=== PATIENT | female | born 1960 | race Caucasian/White ===

== ENCOUNTER 2017-05-01 11:10 | Emergency (ER) | payer BC ==
[~2017-05-01] VITALS: Ht 149.9 cm; Wt 63.5 kg
[~2017-05-01 11:10] MED LIST: BENA5TAB2 PO; CEPH-569; DULO20CA PO; GABA600T2 PO; GLIP10TA11 PO; HYDR-3326; HYDR-3652 PO; METF500T4 PO; SULF1TAB47; TRAM-351 PO; ZOLP10TA6 PO
--- NOTE | 2017-05-01 11:20 | NUR ---
PT TO ER BED 09. C/O LLE PAIN X 4 DAYS. WOUND NOTED, APPROX 3CM DIAMETER. HX OF DIABETES AND NEUROPHATY. PT STATES SHE IS TREATING IT W/ A PRESCRIBE CREAM. VSS. AWAITING MD VILLEDA.
--- NOTE | 2017-05-01 11:39 | NUR ---
DR MOROCHO AT BEDSIDE FOR EVAL.
--- NOTE | 2017-05-01 12:04 | NUR ---
FELT HOOKER AT BEDSIDE FOR BLOOD DRAW.
--- NOTE | 2017-05-01 12:10 | NUR ---
RADIOLOGY AT BEDSIDE FOR L TIB/FIB AND L FOOT XRAY.
[2017-05-01 12:35] LABS: BASOPHILS # (AUTO) 0.1 /CMM (0.0-0.2); BASOPHILS % (AUTO) 0.7 % (0.0-2.0); EOSINOPHILS # (AUTO) 0.5 /CMM (0.0-0.7); EOSINOPHILS % (AUTO) 4.1 % (0.0-6.0); HEMATOCRIT 34 % (33-45); HEMOGLOBIN 11.1 g/dL (11.5-14.8); LYMPHOCYTES # (AUTO) 2.7 /CMM (0.8-4.8); LYMPHOCYTES % (AUTO) 23.9 % (20.0-44.0); MEAN CORPUSCULAR HEMOGLOBIN 31 PG (26.0-33.0); MEAN CORPUSCULAR HGB CONC 32 g/dl (31.0-36.0); MEAN CORPUSCULAR VOLUME 94 fL (82-100); MONOCYTES # (AUTO) 0.6 /CMM (0.1-1.30); MONOCYTES % (AUTO) 5.2 % (2.0-12.0); NEUTROPHILS # (AUTO) 7.4 /CMM (1.8-8.9); NEUTROPHILS % (AUTO) 66.1 % (43.0-81.0); PLATELET COUNT (AUTO) 372 /CMM (150-450); RDW COEFFICIENT OF VARIATION 14.5 (11.5-15.0); RED BLOOD CELL COUNT(AUTO) 3.63 MIL/uL (4.0-5.2); WHITE BLOOD COUNT (AUTO) 11.2 K/uL (4.3-11.0)
[2017-05-01 12:37] LABS: POTASSIUM 5.5 mmol/L (3.5-5.1)
--- NOTE | 2017-05-01 13:29 | NUR ---
Patient discharged to home in stable condition. Written and verbal after care instructions given. Patient verbalizes understanding of instruction.
[2017-05-01 13:30] VITALS: BP 115/60
== END 2017-05-01 13:31 | disposition home or self-care (01) ==
LOC: ER 11:13
DX: L03.116 Cellulitis of left lower limb (principal); E87.5 Hyperkalemia; F17.200 Nicotine dependence, unspecified, uncomplicated; E11.40 Type 2 diabetes mellitus with diabetic neuropathy, unspecified; E78.5 Hyperlipidemia, unspecified; I10 Essential (primary) hypertension
CPT/HCPCS: 36415; 73590-TC; 73630-TC; 80048-TC; 84132-TC; 85025-TC; 85652-TC; 86140-TC; 87040-TC; A4606; Z7610

== ENCOUNTER 2017-07-22 12:54 | Inpatient (IN) | payer BC, MEDICAID ==
[~2017-07-22] VITALS: Ht 149.9 cm; Wt 59.0 kg
--- NOTE | 2017-07-22 13:00 | NUR ---
PT TO ED DT LEFT FELTON AND LFT HEEL PRESSURE ULCER. PER PT SHE WAS ON PO ATB. LEFT FELTON WOUND HAS BEEN THERE FOR 5 MOS. NO REDNESS NOTED. VSS
[2017-07-22] MEDS ORDERED: IV NS 0.9% 1,000 ML BAG IV ONE (14:00)
[2017-07-22] MEDS ORDERED: PIPERACILLIN /TAZOBACTAM 3.375 G in IV D5W 50 ML IV ONE (14:00)
[2017-07-22] MEDS ORDERED: VANCOMYCIN 1 GM in IV D5W 250 ML IV ONE (14:00)
[2017-07-22 14:11] LABS: BASOPHILS # (AUTO) 0.1 /CMM (0.0-0.2); BASOPHILS % (AUTO) 0.7 % (0.0-2.0); EOSINOPHILS # (AUTO) 0.8 /CMM (0.0-0.7); EOSINOPHILS % (AUTO) 7.1 % (0.0-6.0); HEMATOCRIT 36 % (33-45); HEMOGLOBIN 11.8 g/dL (11.5-14.8); LYMPHOCYTES # (AUTO) 3.3 /CMM (0.8-4.8); LYMPHOCYTES % (AUTO) 29.2 % (20.0-44.0); MEAN CORPUSCULAR HEMOGLOBIN 30 PG (26.0-33.0); MEAN CORPUSCULAR HGB CONC 33 g/dl (31.0-36.0); MEAN CORPUSCULAR VOLUME 90 fL (82-100); MONOCYTES # (AUTO) 0.5 /CMM (0.1-1.30); MONOCYTES % (AUTO) 4.3 % (2.0-12.0); NEUTROPHILS # (AUTO) 6.7 /CMM (1.8-8.9); NEUTROPHILS % (AUTO) 58.7 % (43.0-81.0); PLATELET COUNT (AUTO) 388 /CMM (150-450); RDW COEFFICIENT OF VARIATION 12.9 (11.5-15.0); RED BLOOD CELL COUNT(AUTO) 3.96 MIL/uL (4.0-5.2); WHITE BLOOD COUNT (AUTO) 11.4 K/uL (4.3-11.0)
--- NOTE | 2017-07-22 14:15 | NUR ---
CALLED NURSING SUP. FOR MS BED
--- NOTE | 2017-07-22 14:21 | NUR ---
EMS HELICOPTER PILOT AT BEDSIDE
--- NOTE | 2017-07-22 14:29 | NUR ---
MS 120-2
[2017-07-22 14:41] LABS: CREATININE 1.1 mg/dL (0.6-1.3); POTASSIUM 5.3 mmol/L (3.5-5.1)
[2017-07-22 14:49] LABS: ALBUMIN 3.3 g/dL (3.4-5.0); BILIRUBIN,TOTAL 0.1 mg/dL (0.2-1.0); TOTAL PROTEIN, SERUM 7.5 g/dL (6.4-8.2)
[2017-07-22] MEDS ORDERED: HYDR-548 PO (14:49)
[2017-07-22] MEDS ORDERED: HYDROCODONE/APAP 5/325MG 1 EACH TABLET ONE (14:49)
[2017-07-22] MEDS ORDERED: GEMF600T3 PO (14:49)
[2017-07-22] MEDS ORDERED: DULO30CA51 PO (14:49)
[2017-07-22] MEDS ORDERED: LISI-603 PO (14:49)
[2017-07-22] MEDS ORDERED: FERR-58 PO (14:49)
[2017-07-22] MEDS ORDERED: GABA-534 PO (14:49)
[2017-07-22] MEDS ORDERED: GLIM4TAB2 PO (14:49)
[2017-07-22] MEDS ORDERED: HYDROCODONE/APAP 5/325MG 1 EACH TABLET PO ONE (15:00)
--- NOTE | 2017-07-22 15:02 | NUR ---
DR.RUTHERFORD MEHDI WHEELABRATOR OPERATOR
--- NOTE | 2017-07-22 15:12 | NUR ---
REPORT GIVEN TO PERRY ARCHER
--- NOTE | 2017-07-22 15:12 | NUR ---
MD HIRSCHFIRNael AWARE OF ADMISSION
[2017-07-22] MEDS ORDERED: IV 1/2NS 1000 ML 1,000 ML IV PRN (15:31)
[2017-07-22] MEDS ORDERED: HYDROCODONE/APAP 10/325MG 1 EA TABLET PO PRN (16:00)
[2017-07-22] MEDS ORDERED: MAGNESIUM HYDROXIDE 30 ML UDC PO PRN (16:00)
[2017-07-22] MEDS ORDERED: ZOLPIDEM TARTRATE 5 MG TABLET PO PRN (16:00)
[2017-07-22] MEDS ORDERED: HYDROCODONE/APAP 5/325MG 1 EACH TABLET PO PRN (16:00)
[2017-07-22] MEDS ORDERED: *INSULIN REGULAR(HUMULIN R)HUM 100 UNIT/ML VIAL SQ PRN (16:00)
[2017-07-22] MEDS ORDERED: Z GUARD REMEDY 2 OZ OINT TP PRN (16:00)
[2017-07-22] MEDS ORDERED: ONDANSETRON HCL/PF 4 MG/2 ML VIAL IVP PRN (16:00)
[2017-07-22] MEDS ORDERED: MAG HYDROX/AL HYDROX/SIMETH 30 ML UDC PO PRN (16:00)
[2017-07-22] MEDS ORDERED: DEXTROSE 50%-WATER 50 ML DISP.SYRIN IV PRN (16:00)
[2017-07-22] MEDS ORDERED: ACETAMINOPHEN 325 MG TABLET PO PRN (16:00)
[2017-07-22 16:15] VITALS: BP 143/66
--- NOTE | 2017-07-22 16:15 | NUR ---
RN NOTES 57 YEARS OLD FEMALE RECEIVED FROM ER IN ROOM 120-2, A/Ox4, RESPIRATION EVEN AND UNLABORED, ON RA NO SOB NOTED, PT REFUSED TO TAKE HER CLOTHES OFF FOR HEAD TO TOE ASSESSMENT. PT STATED THAT HER PROBLEMS IS ONLY ON L LEG . L FELTON AND L HEEL WOUND NOTED, PHOTOS TAKEN AND PLACED IN THE CHART . R WRIST IV SITE G 20 CDI, SR UP x3, CALL LIGHT WITHIN EASY REACH, BED LOCKED AND IN LOWEST POSITION . CONTINUE TO MONITOR
[2017-07-22] MEDS ORDERED: FEE PK DOSING 1 MIN EA MC ONE (16:50)
[2017-07-22] MEDS: IV NS 0.9% 1,000 ML IV PRN (17:41)
[2017-07-22] MEDS: GEMFIBROZIL 600 MG TABLET PO SCH (17:42)
[2017-07-22] MEDS: GABAPENTIN 300 MG CAPSULE PO SCH ×2 (17:42→21:29)
[2017-07-22] MEDS: INSULIN REGULAR, HUMAN 100 UNIT/ML 3 ML VIAL SQ PRN (17:46)
[2017-07-22] MEDS: BLOOD SUGAR DIAGNOSTIC 1 EACH STRIP VI SCH ×2 (17:46→21:34)
--- NOTE | 2017-07-22 18:00 | NUR ---
RN NOTES PT STILL REFUSING TO TAKE HER CLOTHES OFF FOR SKIN ASSESSMENT, STATED THERE IS NOTHING WRONG ON HER SKIN EXCEPT THE LEFT LEG AND HEEL WOUNDS .
--- NOTE | 2017-07-22 19:30 | NUR ---
MS RN INITIAL NOTES RECEIVED PATIENT AWAKE A/OX4, ABLE TO MAKE NEEDS KNOWN. C/O 6/10 LEFT LOWER LEG PAIN. NO RESPIRATORY DISTRESS NOTED. SEEN AND EXAMINED BY TRACK REPAIR PERSON DR. GAITAN WITH ORDERS FOR LLE DEBRIDEMENT. SKIN WARM AND DRY TO TOUCH. IVF RUNNING. SIDE RAILS UP AND LOCKED. BED KEPT AT LOWEST POSITION. CALL LIGHT KEPT WITHIN EASY REACH. WILL CONTINUE TO MONITOR.
[2017-07-22 20:00] VITALS: BP 140/62
[2017-07-22] MEDS ORDERED: LIDOCAINE 2%-EPI 1:100,000 30 ML VIAL TP ONE (20:00)
--- NOTE | 2017-07-22 20:30 | NUR ---
S/P LLE DEBRIDEMENT, DRY DRESSING PLACED BY . NO COMPLICATIONS NOTED. MINIMAL BLEEDING. WILL CONTINUE TO MONITOR.
[2017-07-23] MEDS: MORPHINE SULFATE INJ 2 MG/ML DISP.SYRIN IV PRN ×2 (02:33→06:45)
[2017-07-23 04:00] VITALS: BP 138/62
[2017-07-23] MEDS: IV NS 0.9% 1,000 ML IV PRN (05:55)
--- NOTE | 2017-07-23 07:10 | NUR ---
RN NOTES RECEIVED PATIENT ON BED , AWAKE A/OX4, ABLE TO MAKE NEEDS KNOWN.RESPIRATION EVEN AND UNLABORED, NO SOB NOTED, SKIN WARM AND DRY TO TOUCH. DRESSING TO L FELTON CDI, IVF NS AT 75CC/HR RUNNING VIA R WRIST IV SITE G 20 , SIDE RAILS UP x3, BED LOCKED AND IN LOWEST POSITION, CALL LIGHT WITHIN EASY REACH. WILL CONTINUE TO MONITOR
--- NOTE | 2017-07-23 07:24 | NUR ---
MS RN CLOSING NOTES NO SIGNIFICANT CHANGES OVERNIGHT. WOUND TX PROVIDED ORDERED. PAIN MONITORED AND MANAGED NEEDED. NO RESPIRATORY DISTRESS NOTED. ALL NEEDS ANTICIPATED AND MET. SIDE RAILS UP AND LOCKED. BED KEPT AT LOWEST POSITION. CALL LIGHT KEPT WITHIN EASY REACH. CONTINUITY OF CARE ENDORSED TO AM NURSE.
[2017-07-23 07:59] LABS: BASOPHILS # (AUTO) 0.1 /CMM (0.0-0.2); BASOPHILS % (AUTO) 0.7 % (0.0-2.0); EOSINOPHILS # (AUTO) 0.6 /CMM (0.0-0.7); EOSINOPHILS % (AUTO) 6.3 % (0.0-6.0); HEMATOCRIT 31 % (33-45); LYMPHOCYTES # (AUTO) 3.4 /CMM (0.8-4.8); LYMPHOCYTES % (AUTO) 34.6 % (20.0-44.0); MEAN CORPUSCULAR HEMOGLOBIN 30 PG (26.0-33.0); MEAN CORPUSCULAR HGB CONC 33 g/dl (31.0-36.0); MEAN CORPUSCULAR VOLUME 91 fL (82-100); MONOCYTES # (AUTO) 0.5 /CMM (0.1-1.30); NEUTROPHILS # (AUTO) 5.3 /CMM (1.8-8.9); NEUTROPHILS % (AUTO) 53.4 % (43.0-81.0); PLATELET COUNT (AUTO) 287 /CMM (150-450); RDW COEFFICIENT OF VARIATION 13.9 (11.5-15.0); RED BLOOD CELL COUNT(AUTO) 3.34 MIL/uL (4.0-5.2); WHITE BLOOD COUNT (AUTO) 9.9 K/uL (4.3-11.0)
[2017-07-23 08:00] VITALS: BP 148/63
[2017-07-23] MEDS ORDERED: VANCOMYCIN 0.75 GM in IV D5W 250 ML IV SCH (08:00)
[2017-07-23] MEDS: GABAPENTIN 300 MG CAPSULE PO SCH ×2 (08:18→13:45)
[2017-07-23] MEDS: GEMFIBROZIL 600 MG TABLET PO SCH (08:18)
[2017-07-23 08:19] VITALS: BP 148/63
[2017-07-23] MEDS: INSULIN REGULAR, HUMAN 100 UNIT/ML 3 ML VIAL SQ PRN ×2 (08:20→11:46)
[2017-07-23] MEDS: BLOOD SUGAR DIAGNOSTIC 1 EACH STRIP VI SCH ×2 (08:28→11:46)
[2017-07-23 08:33] LABS: CALCIUM, SERUM 8.5 mg/dL (8.5-10.1); CREATININE 0.8 mg/dL (0.6-1.3); MAGNESIUM 2.1 mg/dL (1.8-2.4); PHOSPHORUS 3.5 mg/dL (2.5-4.9)
[2017-07-23 08:49] LABS: POTASSIUM 5.3 mmol/L (3.5-5.1)
[2017-07-23] MEDS ORDERED: FERROUS SULFATE (325 MG) 325 MG/TAB TABLET PO SCH (09:00)
[2017-07-23] MEDS ORDERED: LISINOPRIL (20MG) 20 MG TABLET PO SCH (09:00)
[2017-07-23] MEDS ORDERED: DULOXETINE HCL 30 MG CAPSULE.DR PO SCH (09:00)
[2017-07-23] MEDS ORDERED: SULF1TAB48 PO (11:19)
--- NOTE | 2017-07-23 12:00 | NUR ---
RN NOTES DISCHARGE INSTRUCTION GIVE TO PT ,VERBALIZES UNDERSTANDING , H/L ON R WRIST DISCOUNTED.
--- NOTE | 2017-07-23 14:07 | NUR ---
RN NOTES PT LEFT THE FLOOR VIA W/C ACCOMPANIED BY STAFF MEMBERS AND FAMILY TO MAIN ENTRANCE IN STABLE CONDITION .
== END 2017-07-23 14:25 | disposition home or self-care (01) | DRG 383 ==
LOC: ER 12:57 → MEDSG1 15:01
PROVIDERS: ADMIT Internal Medicine; ATTEND Internal Medicine
PROC: 0JBP0ZZ Excision of Left Lower Leg Subcutaneous Tissue and Fascia, Open Approach (ICD-10-PCS; principal; 2017-07-22)
DX: L03.116 Cellulitis of left lower limb (principal); E43 Unspecified severe protein-calorie malnutrition; E11.42 Type 2 diabetes mellitus with diabetic polyneuropathy; E11.65 Type 2 diabetes mellitus with hyperglycemia; E87.5 Hyperkalemia; Z87.891 Personal history of nicotine dependence; E78.5 Hyperlipidemia, unspecified; E87.1 Hypo-osmolality and hyponatremia; I10 Essential (primary) hypertension; Z79.84 Long term (current) use of oral hypoglycemic drugs; Z83.3 Family history of diabetes mellitus; R79.89 Other specified abnormal findings of blood chemistry; R53.1 Weakness; Z68.26 Body mass index [BMI] 26.0-26.9, adult; E88.09 Other disorders of plasma-protein metabolism, not elsewhere classified; E11.622 Type 2 diabetes mellitus with other skin ulcer; L97.929 Non-pressure chronic ulcer of unspecified part of left lower leg with unspecified severity; L89.620 Pressure ulcer of left heel, unstageable
CPT/HCPCS: 36415; 73650-TC; 80048-TC; 80076-TC; 82962-TC; 83605-TC; 83735-TC; 84100-TC; 85025-TC; 87040-TC; 87081-TC; A4606; A6402; J1815; J2270; J2543; J3370; J3490; J7030; J7060; Z7610

== ENCOUNTER 2019-09-25 10:56 | Inpatient (IN) | payer BC, MEDICAID ==
[2019-09-25] VITALS (15 sets, daily range): BP systolic 87–145; BP diastolic 27–97
[~2019-09-25] VITALS: Ht 149.9 cm; Wt 82.8 kg
[~2019-09-25 10:56] MED LIST changes: -BENA5TAB2 PO; -CEPH-569; -DULO20CA PO; +DULO30CA52 PO; +FERR325T23 PO; +GABA-534 PO; -GABA600T2 PO; +GEMF600T5 PO; +GLIM4TAB37 PO; -GLIP10TA11 PO; -HYDR-3326; -HYDR-3652 PO; +HYDR-4354 PO; +LISI-603 PO; +METF-440 PO; -METF500T4 PO; -SULF1TAB47; +SULF1TAB48 PO; -TRAM-351 PO; -ZOLP10TA6 PO
[2019-09-25] MEDS ORDERED: IV NS 0.9% 1,000 ML BAG IV ONE (11:30)
--- NOTE | 2019-09-25 11:30 | NUR ---
patient bibra from home, c/o weakness with nausea and vomiting. On room air, breathing evenly and unlabored, connected to the monitor and pulse ox. Pale in color. Kept comfortable, will continue to monitor accordingly.
--- NOTE | 2019-09-25 11:37 | NUR ---
Doris [phone] sister
[2019-09-25 12:02] LABS: BASOPHILS % (AUTO) 0.2 % (0.0-2.0); HEMATOCRIT 21 % (33-45); LYMPHOCYTES % (AUTO) 11.8 % (20.0-44.0); MEAN CORPUSCULAR HGB CONC 28 g/dl (31.0-36.0); MEAN CORPUSCULAR VOLUME 73 fL (82-100); MONOCYTES # (AUTO) 0.8 /CMM (0.1-1.30); MONOCYTES % (AUTO) 8.5 % (2.0-12.0); NEUTROPHILS # (AUTO) 7.1 /CMM (1.8-8.9); NEUTROPHILS % (AUTO) 79.5 % (43.0-81.0); PLATELET COUNT (AUTO) 257 /CMM (150-450); RED BLOOD CELL COUNT(AUTO) 2.91 MIL/uL (4.0-5.2)
[2019-09-25 12:08] LABS: HEMOGLOBIN 5.9 g/dL (11.5-14.8)
[2019-09-25 12:10] LABS: CALCIUM, SERUM 8.5 mg/dL (8.5-10.1); CARBON DIOXIDE 20 mmol/L (21-32); CHLORIDE 103 mmol/L (98-107); CREATININE 1.1 mg/dL (0.6-1.3); GLUCOSE 313 mg/dL (74-106); POTASSIUM 5.1 mmol/L (3.5-5.1); SODIUM SERUM 136 mmol/L (136-145); UREA NITROGEN, BLOOD 34 mg/dL (7-18)
--- NOTE | 2019-09-25 12:14 | NUR ---
rider cath inserted F16
[2019-09-25 12:16] LABS: ALANINE AMINOTRANSFERASE 765 U/L (12-78); ALBUMIN 2.7 g/dL (3.4-5.0); ALKALINE PHOSPHATASE 275 U/L (46-116); ASPARTATE AMINOTRANSFERASE 475 U/L (15-37); BILIRUBIN,DIRECT 1.3 mg/dL (0.0-0.2); BILIRUBIN,TOTAL 1.9 mg/dL (0.2-1.0); LIPASE 81 U/L (73-393); TOTAL PROTEIN, SERUM 6.2 g/dL (6.4-8.2)
[2019-09-25 13:05] LABS: OCCULT BLOOD STOOL NEGATIVE (NEGATIVE)
[2019-09-25 13:13] LABS: APPEARANCE,URINE Clear (CLEAR); BILIRUBIN,URINE SMALL (NEGATIVE); BLOOD, URINE Negative Ery/uL (NEGATIVE); COLOR,URINE Yellow (YELLOW); KETONES,URINE 15 (NEGATIVE); LEUKOCYTE ESTERASE ,URINE Negative (NEGATIVE); NITRITE, URINE Negative (NEGATIVE); PH,URINE 5.5 (5.0-8.0); PROTEIN,URINE 30 mg/dl (NEGATIVE); UGLUCOSE 100 MG/DL mg/dL (NEGATIVE)
[2019-09-25 13:14] LABS: BACTERIA,URINE Few /HPF (None Seen); RBC,URINE 0-2 /HPF (0-2); WBC,URINE 0-2 /HPF (0-3)
[2019-09-25 13:15] LABS: SQUAMOUS EPITHELIAL CELL,UR Few /HPF (None Seen)
[2019-09-25 13:23] LABS: LYMPHOCYTES % (MANUAL) 16 % (16-48); MONOCYTES % (MANUAL) 6 % (0-11.0); NEUTROPHILS % (MANUAL) 78 (42-76)
--- NOTE | 2019-09-25 13:31 | NUR ---
wheeled patient via [facility] for ct scan.
[2019-09-25] MEDS ORDERED: IOHEXOL-300 100 ML VIAL IV ONE (13:36)
[2019-09-25] MEDS ORDERED: CT SWABBABLE VALVE TRANS SET 1 EA INFUS.SET MC ONE (13:36)
[2019-09-25] MEDS ORDERED: IV NS 0.9% 250 ML IV ONE (13:36)
[2019-09-25 13:43] LABS: WHITE BLOOD COUNT (AUTO) 8.9 K/uL (4.3-11.0)
--- NOTE | 2019-09-25 14:58 | NUR ---
Report given to Kathryn AMADOR for dorota.
[2019-09-25] MEDS ORDERED: DIAZ5TAB4 PO (15:15)
[2019-09-25] MEDS ORDERED: CLON0.5T4 PO (15:15)
[2019-09-25] MEDS ORDERED: CLOP75TA15 PO (15:15)
[2019-09-25] MEDS ORDERED: FOLI0.4T2 PO (15:15)
[2019-09-25] MEDS ORDERED: ASPI-1152 PO (15:15)
[2019-09-25] MEDS ORDERED: ALBU8.5H8 IH (15:15)
[2019-09-25] MEDS ORDERED: VITA1TAB56 PO (15:15)
[2019-09-25] MEDS ORDERED: HYDR-4303 PO (15:15)
[2019-09-25] MEDS ORDERED: ZOLP5TAB8 PO (15:15)
--- NOTE | 2019-09-25 15:23 | NUR ---
ICU 256
--- NOTE | 2019-09-25 15:55 | NUR ---
Report given to Sean AMADOR for dorota.
[2019-09-25] MEDS ORDERED: Z GUARD REMEDY 2 OZ OINT TP PRN (16:30)
[2019-09-25] MEDS ORDERED: ACETAMINOPHEN 325 MG TABLET PO PRN (16:30)
[2019-09-25] MEDS ORDERED: ONDANSETRON HCL/PF 4 MG/2 ML VIAL IVP PRN (16:30)
--- NOTE | 2019-09-25 16:39 | NUR ---
Wheeled patient via gurney accompanied RN and emt in no distress. Sani at bedside to assume care. Blood transfusion done with no adverse effect noted.
--- NOTE | 2019-09-25 16:40 | NUR ---
APPLE PRESS OPERATORSENIOR SHAREPOINT DEVELOPER NOTE RECEIVED REPORT FROM RAZA AMADOR.PATIENT RECEIVED VIA [facility].ADMITTING FOR SEVERE ANEMIA,PULMONARY EDEMA,ANASARCA.S/P I UNIT PRBC.PATIENT LOOKS PALE.ON TELE MONITOR SR TO ST.SATURATING 100% ON ROOM AIR.NO SOB NO DISTRESS NOTED.IV LINES ARE INTACT AND PATENT .AWAITING PICC LINE INSERTION.BED IS LOW AND IN LOCKED POSITION.CALL LIGHT IN REACH.BED ALARM ON .SRX3.WILL CONTINE TO MONITOR.
[2019-09-25] MEDS: FUROSEMIDE 40 MG/4 ML VIAL IV SCH (17:03)
--- NOTE | 2019-09-25 17:31 | NUR ---
SLACK COOPER NOTE GOT CALL FROM LAB FOR F/U H/H POST TRANSFUSION OF FIRST PRBC.PLACED AN ORDER FOR H/H.TO KEEP PATIENT NPO PER .
[2019-09-25 18:36] LABS: HEMOGLOBIN 7.4 g/dL (11.5-14.8)
[2019-09-25] MEDS ORDERED: clonazePAM 0.5 MG TABLET PO PRN (19:00)
--- NOTE | 2019-09-25 19:15 | NUR ---
ADMIN PROG COORD CLOSING NOTE PATIENT NPO.AXO2 WITH PERIODS OF CONFUSION BUT ABLE TO ANSWER QUESTIONS REASONABLY.VITAL SIGNS STABLE.NO S/S OF BLEEDING NOTED.MEDICATIONS GIVEN TO PHARMACY.SAFETY MEASURES IN PLACE.ENDORSED TO PM NURSE FOR TAMMIE.
[2019-09-25] MEDS ORDERED: ALBUTEROL FS 2.5 MG/3 ML VIAL.NEB NEB PRN (19:30)
--- NOTE | 2019-09-25 20:00 | NUR ---
PIPE FITTER SUPERVISOR MAINTENANCE - NOTES - RECEIVED PATIENT IN BED. PT IS ON TELE MONITOR SR-ST. SATURATING 100% ON ROOM AIR. NO SOB NO DISTRESS NOTED. IV LINES ARE INTACT AND PATENT YARITZA PICC LINE. BED IS LOW AND IN LOCKED POSITION. CALL LIGHT IN REACH.BED ALARM ON . SRX3. WILL CONTINE TO MONITOR.
[2019-09-25] MEDS: CEFTRIAXONE 1 G in IV D5W 50 ML IV SCH (20:28)
--- NOTE | 2019-09-25 21:21 | NUR ---
SPOKE WITH DR ARCHER, NOTIFIED HIM THAT HGB 7.4 AND HCT 25, HE SAID RECHECK H/H AT 2300 AND IF HGB > 7, NO NEED TO GIVE ADDITIONAL PRBC
[2019-09-26] VITALS (13 sets, daily range): BP systolic 105–146; BP diastolic 46–111
[2019-09-26 04:33] LABS: HEMATOCRIT 27 % (33-45); HEMOGLOBIN 8.2 g/dL (11.5-14.8); LYMPHOCYTES # (AUTO) 1.1 /CMM (0.8-4.8); LYMPHOCYTES % (AUTO) 10.4 % (20.0-44.0); MEAN CORPUSCULAR HGB CONC 30 g/dl (31.0-36.0); MEAN CORPUSCULAR VOLUME 78 fL (82-100); MONOCYTES # (AUTO) 0.9 /CMM (0.1-1.30); NEUTROPHILS # (AUTO) 8.6 /CMM (1.8-8.9); NEUTROPHILS % (AUTO) 81.6 % (43.0-81.0); PLATELET COUNT (AUTO) 205 /CMM (150-450); RED BLOOD CELL COUNT(AUTO) 3.51 MIL/uL (4.0-5.2); WHITE BLOOD COUNT (AUTO) 10.6 K/uL (4.3-11.0)
[2019-09-26] MEDS: MORPHINE SULFATE INJ 2 MG/ML DISP.SYRIN IV PRN ×2 (04:46→11:19)
[2019-09-26 05:04] LABS: ALBUMIN 2.7 g/dL (3.4-5.0); BILIRUBIN,TOTAL 2.3 mg/dL (0.2-1.0); CALCIUM, SERUM 8.5 mg/dL (8.5-10.1); MAGNESIUM 1.8 mg/dL (1.8-2.4); PHOSPHORUS 3.6 mg/dL (2.5-4.9); POTASSIUM 4.1 mmol/L (3.5-5.1); TOTAL PROTEIN, SERUM 5.9 g/dL (6.4-8.2)
--- NOTE | 2019-09-26 07:30 | NUR ---
ACCOUNT MANAGER TRAINEE INITIAL NOTE RECEIVED PATIENT AWAKE, ALERT, ORIENTED. DENIES SOB. NO DISTRESS NOTED. ON TELE MONITOR SINUS TACH. F/C PATENT, DRAINING BY GRAVITY. YARITZA PICC LINE PATENT AND INTACT. HOB ELEVATED. SIDE RAILS UP AND LOCKED. BED KEPT AT LOWEST POSITION. CALL LIGHT KEPT WITHIN EASY REACH. WILL CONTINUE TO MONITOR.
--- NOTE | 2019-09-26 07:39 | NUR ---
MACHINE DEBURRER NOTE SEEN AND EXAMINED BY DR. MANZANARES WITH ORDERS TRANSFER TO TELE AND OK TO START ON CARDIAC DIET. NOTED
--- NOTE | 2019-09-26 08:45 | NUR ---
WATCH TECHNICIAN NOTE PER PATIENT SHE TAKE METFORMIN 1000MG BID, MD MADE AWARE, PER MD HOLDING METFORMIN AT THIS TIME DUE TO LACTIC ACIDOSIS. OK FOR DIABETIC DIET.
--- NOTE | 2019-09-26 08:47 | NUR ---
WOUND CARE CONSULT: PT SITTING UP AT SIDE OF BED AND PRESENTS WITH RT FOOT DRY WOUND, REDNESS AND EDEMA TO RT FOOT AND SCAR TO LEFT LOWER LEG, PRESENT ON ADMISSION. RECOMMEND DPM CONSULT. DR URRUTIA NOTIFIED. PT IS INDEPENDENT WITH BED MOBILITY AND CONTINENT AT THIS TIME. WILL SEE PRN. RUIZ IN AGREEMENT WITH PLAN OF CARE. Addendum: 09/26/19 at 0850 by STELLA SANTOS WNDNU Amended: Links added.
[2019-09-26] MEDS: FUROSEMIDE 40 MG/4 ML VIAL IV SCH ×2 (08:51→17:09)
[2019-09-26] MEDS: VITAMIN B COMP W-C 1 TAB TABLET PO SCH (08:52)
[2019-09-26] MEDS: LISINOPRIL (20MG) 20 MG TABLET PO SCH (08:52)
[2019-09-26] MEDS: GABAPENTIN 400 MG CAPSULE PO SCH ×3 (08:52→17:09)
[2019-09-26] MEDS: DULOXETINE HCL 30 MG CAPSULE.DR PO SCH (08:52)
[2019-09-26] MEDS: SPIRONOLACTONE 25 MG TABLET PO SCH (08:52)
[2019-09-26] MEDS: FOLIC ACID 1 MG TABLET PO SCH (08:52)
[2019-09-26] MEDS ORDERED: METFORMIN 500 MG TABLET PO SCH (09:00)
--- NOTE | 2019-09-26 09:20 | NUR ---
BACON SKIN LIFTER NOTE PATIENT TRANSFERRED VIA ACLS PROTOCOL WITH BED, PATIENT IN STABLE CONDITION. ALL BELONGINGS WITH PATIENT, REPORT GIVEN TO DULCE PERRY BENITEZ TO ROOM 119-2
[2019-09-26 10:08] LABS: THYROID STIMULATING HORMONE 1.479 uIU/mL (0.358-3.74)
[2019-09-26] MEDS: ENOXAPARIN SODIUM 40 MG/0.4 ML DISP.SYRIN SQ SCH (11:26)
[2019-09-26 11:42] LABS: HEMOGLOBIN 8.6 g/dL (11.5-14.8)
[2019-09-26] MEDS ORDERED: DEXTROSE 50%-WATER 50 ML DISP.SYRIN IV PRN (18:00)
--- NOTE | 2019-09-26 19:13 | NUR ---
RN OPENING NOTE RECEIVED PATIENT ASLEEP, BUT EASILY ARROUSABLE NO DISTRESS NOTED. ON TELE MONITOR SINUS TACH. F/C PATENT, DRAINING BY GRAVITY. YARITZA PICC LINE PATENT AND INTACT. HOB ELEVATED. SIDE RAILS UP AND LOCKED. BED KEPT AT LOWEST POSITION. CALL LIGHT KEPT WITH IN REACH. WILL CONTINUE TO MONITOR.
[2019-09-26] MEDS: CEFTRIAXONE 1 G in IV D5W 50 ML IV SCH (20:17)
[2019-09-26] MEDS: BLOOD SUGAR DIAGNOSTIC 1 EACH STRIP VI SCH (22:05)
--- NOTE | 2019-09-26 22:14 | NUR ---
RN NOTE acucheck blood sugar 416, CHARGE NURSE MADE AWARE, STAT LAB BLOOD GLUCOSE ORDERED.
--- NOTE | 2019-09-26 22:59 | NUR ---
RN NOTE RECEIVED CALL FROM LAB BLOOD SUGAR 447. MD MACHUCA, CHARGE NURSE AWARE.
[2019-09-26] MEDS: *INSULIN REGULAR(HUMULIN R)HUM 100 UNIT/ML VIAL SQ PRN (23:15)
[2019-09-27] VITALS: BP 95/46
[2019-09-27 04:00] VITALS: BP 106/51
[2019-09-27 08:00] VITALS: BP 96/56
--- NOTE | 2019-09-27 08:00 | NUR ---
clip loading machine adjuster Notes Received patient in bed from assembler 1st shift. VSS. shift supervisor melting endorsed that this was a client who was admitted from home, and was found 3 days after falling on the floor. Patient was treated for severe anemia. Patient was tx via thoracentesis and 1020cc removed post admission. Patient uses nasal canula. Removes it sometimes but tolerates room air. Patient has BL pedal edema 2+ pitting. Per assembler 1st shift FC drained 700cc clear yellow OP. Patient on cardiac diet. Patient has PICC line YARITZA, flushing well and patient in all 3 ports. Plan of care explained to patient on shift hand off. BS was 146 at 0800. Bed in lowest position, call light with reach. All measures taken to ensure client safety.
[2019-09-27] MEDS: BLOOD SUGAR DIAGNOSTIC 1 EACH STRIP VI SCH ×4 (08:22→22:01)
[2019-09-27] MEDS: *INSULIN REGULAR(HUMULIN R)HUM 100 UNIT/ML VIAL SQ PRN ×3 (08:24→21:55)
[2019-09-27] MEDS: CADEXOMER IODINE 40 GM TUBE TP SCH (09:00)
[2019-09-27] MEDS: LISINOPRIL (20MG) 20 MG TABLET PO SCH (09:00)
[2019-09-27] MEDS: VITAMIN B COMP W-C 1 TAB TABLET PO SCH (09:29)
[2019-09-27] MEDS: SPIRONOLACTONE 25 MG TABLET PO SCH (09:29)
[2019-09-27] MEDS: GABAPENTIN 400 MG CAPSULE PO SCH ×3 (09:29→17:03)
[2019-09-27] MEDS: FOLIC ACID 1 MG TABLET PO SCH (09:30)
[2019-09-27] MEDS: DULOXETINE HCL 30 MG CAPSULE.DR PO SCH (09:30)
[2019-09-27] MEDS: FUROSEMIDE 40 MG/4 ML VIAL IV SCH ×2 (09:31→17:04)
[2019-09-27] MEDS: ENOXAPARIN SODIUM 40 MG/0.4 ML DISP.SYRIN SQ SCH (09:40)
[2019-09-27 11:30] LABS: BASOPHILS % (AUTO) 0.5 % (0.0-2.0); EOSINOPHILS % (AUTO) 1.1 % (0.0-6.0); HEMATOCRIT 29 % (33-45); HEMOGLOBIN 8.6 g/dL (11.5-14.8); LYMPHOCYTES # (AUTO) 1.7 /CMM (0.8-4.8); LYMPHOCYTES % (AUTO) 18.7 % (20.0-44.0); MEAN CORPUSCULAR HGB CONC 30 g/dl (31.0-36.0); MEAN CORPUSCULAR VOLUME 77 fL (82-100); MONOCYTES # (AUTO) 0.7 /CMM (0.1-1.30); MONOCYTES % (AUTO) 7.5 % (2.0-12.0); NEUTROPHILS # (AUTO) 6.5 /CMM (1.8-8.9); NEUTROPHILS % (AUTO) 72.2 % (43.0-81.0); PLATELET COUNT (AUTO) 156 /CMM (150-450); RED BLOOD CELL COUNT(AUTO) 3.71 MIL/uL (4.0-5.2)
--- NOTE | 2019-09-27 11:44 | NUR ---
senior procurement manager Notes MD Stefany Craig notified of BP 92/42. Patient is not symptomatic at this time. No new orders received.
[2019-09-27 11:45] LABS: CALCIUM, SERUM 7.5 mg/dL (8.5-10.1); CREATININE 1.2 mg/dL (0.6-1.3); POTASSIUM 3.3 mmol/L (3.5-5.1)
[2019-09-27 12:00] VITALS: BP 92/42
[2019-09-27 12:32] LABS: ALBUMIN 2.2 g/dL (3.4-5.0); BILIRUBIN,DIRECT 0.9 mg/dL (0.0-0.2); BILIRUBIN,TOTAL 1.4 mg/dL (0.2-1.0); TOTAL PROTEIN, SERUM 5.1 g/dL (6.4-8.2)
[2019-09-27] MEDS: INSULIN REGULAR, HUMAN 100 UNIT/ML 3 ML VIAL SQ PRN (12:39)
[2019-09-27 16:00] VITALS: BP_SYST 92; BP_SYST 96; BP_DIAS 42; BP_DIAS 43
[2019-09-27] MEDS ORDERED: POTASSIUM CHLORIDE 20 MEQ TAB.PRT.SR PO ONE (17:45)
--- NOTE | 2019-09-27 19:23 | NUR ---
RN OPENING NOTE PATIENT AWAKE A/O X 3 NO DISTRESS NOTED. ON TELE MONITOR CURRENTLY ST 98. F/C PATENT, DRAINING BY GRAVITY. YARITZA PICC LINE PATENT AND INTACT. HOB ELEVATED. SIDE RAILS UP AND LOCKED. BED KEPT AT LOWEST POSITION. CALL LIGHT KEPT WITH IN REACH. WILL CONTINUE TO MONITOR.
--- NOTE | 2019-09-27 19:55 | NUR ---
art educator Closing Note Hand off completed with Renée AMADOR. No acute changes in neuro or orientation. Patient O2 sat is greater then 92 on room air. Patient removes nasal canula at her comfort. No SOB noted. Endorsed that 40meq KDur given to replace low potasium of 3.3, patient complained of leg cramps. Explained new order for Mg lab and need to follow up. Dressing change on BL feet done on shift. No BM on shift, 1300mL UOP clear yellow. Addendum: 09/27/19 at 2002 by EMIR SCHRADER RN Bed in lowest position, call light within reach,all measures taken to ensure client safety. Patient understands current plan of care. Duplex US f/u with podiatry. Vascular Surgery consulted by podiatry.
[2019-09-27 20:00] VITALS: BP 100/49
[2019-09-27] MEDS: CEFTRIAXONE 1 G in IV D5W 50 ML IV SCH (20:14)
[2019-09-28] VITALS: BP 101/52
[2019-09-28 04:00] VITALS: BP 94/54
--- NOTE | 2019-09-28 07:21 | NUR ---
RN CLOSING NOTE PATIENT ASLEEP, RESTING COMFORTABLY. DIRECTOR OF PAYROLL DISTRESS NOTED. ON TELE MONITOR CURRENTLY SNIUS 92. F/C PATENT, DRAINING BY GRAVITY. YARITZA PICC LINE PATENT AND INTACT. HOB ELEVATED. SIDE RAILS UP AND LOCKED. BED KEPT AT LOWEST POSITION. CALL LIGHT KEPT WITH IN REACH. ENDORSED TO AM NURSE.
[2019-09-28 08:00] VITALS: BP_SYST 109; BP_SYST 115; BP_DIAS 58; BP_DIAS 75
[2019-09-28] MEDS: *INSULIN REGULAR(HUMULIN R)HUM 100 UNIT/ML VIAL SQ PRN ×2 (08:22→21:32)
[2019-09-28] MEDS: VITAMIN B COMP W-C 1 TAB TABLET PO SCH (08:24)
[2019-09-28] MEDS: GABAPENTIN 400 MG CAPSULE PO SCH ×3 (08:26→16:03)
[2019-09-28] MEDS: FOLIC ACID 1 MG TABLET PO SCH (08:26)
[2019-09-28] MEDS: DULOXETINE HCL 30 MG CAPSULE.DR PO SCH (08:27)
[2019-09-28] MEDS: FUROSEMIDE 40 MG/4 ML VIAL IV SCH ×2 (08:28→16:06)
[2019-09-28] MEDS: BLOOD SUGAR DIAGNOSTIC 1 EACH STRIP VI SCH ×4 (08:31→21:26)
[2019-09-28] MEDS: LISINOPRIL (20MG) 20 MG TABLET PO SCH (08:32)
[2019-09-28] MEDS: ENOXAPARIN SODIUM 40 MG/0.4 ML DISP.SYRIN SQ SCH (08:35)
[2019-09-28] MEDS: CADEXOMER IODINE 40 GM TUBE TP SCH (08:38)
[2019-09-28] MEDS: SPIRONOLACTONE 25 MG TABLET PO SCH (08:42)
--- NOTE | 2019-09-28 11:30 | NUR ---
TREATING PLANT PUMPER NOTE SEEN BY PT AND DR MANZANARES AWARE THAT ON LASIX AND ALDACTONE, OK TO GIVE MORPHINE FOR PAIN PRN
[2019-09-28 11:38] LABS: HEMOGLOBIN 8.3 g/dL (11.5-14.8)
[2019-09-28 12:00] VITALS: BP 98/44
[2019-09-28] MEDS: INSULIN REGULAR, HUMAN 100 UNIT/ML 3 ML VIAL SQ PRN ×2 (12:04→19:01)
[2019-09-28] MEDS: METFORMIN 500 MG TABLET PO SCH ×2 (12:30→16:03)
--- NOTE | 2019-09-28 12:30 | NUR ---
COIL FORMER NOTE HOLD METFORMIN AT THIS TIME JUST REGULAR INSULIN WAS GIVEN, WILL MONITOR CLOSELY ,RT FOOT TX DONE ORDERED
[2019-09-28] MEDS: SOD FERRIC GLUC 125 MG in IV NS 0.9% 100 ML IV SCH (13:46)
--- NOTE | 2019-09-28 14:48 | NUR ---
telephone diaphragm assembler note pdr Samson statistical clerk advertising at bedside aware that Prinivil was held earlier bp [id number] and are that patient on Lasix and Aldactone, has goo urine output ordered bmp , will f\u
[2019-09-28 14:58] LABS: CALCIUM, SERUM 7.5 mg/dL (8.5-10.1); CREATININE 1.2 mg/dL (0.6-1.3); MAGNESIUM 1.4 mg/dL (1.8-2.4); POTASSIUM 4.1 mmol/L (3.5-5.1)
[2019-09-28] MEDS: Magnesium 1GM/D5W 100ML PREMIX 100 ML IV SCH ×4 (15:41→19:03)
[2019-09-28 16:00] VITALS: BP 93/51
--- NOTE | 2019-09-28 18:10 | NUR ---
teleprinter installer note per pharmacy mag 1.4 with new order given 4gm iv to administer , will f\u , family at bedside ,all needs attended
--- NOTE | 2019-09-28 19:26 | NUR ---
director television note all needs attended ,will cont to monitor closely
[2019-09-28 20:00] VITALS: BP 87/46
[2019-09-28] MEDS: CEFTRIAXONE 1 G in IV D5W 50 ML IV SCH (20:04)
[2019-09-29] VITALS: BP 107/63
[2019-09-29] MEDS: MORPHINE SULFATE INJ 2 MG/ML DISP.SYRIN IV PRN ×2 (00:18→08:53)
[2019-09-29 04:00] VITALS: BP 91/47
[2019-09-29] MEDS: BLOOD SUGAR DIAGNOSTIC 1 EACH STRIP VI SCH ×4 (07:30→21:52)
--- NOTE | 2019-09-29 07:50 | NUR ---
RN OPENING NOTE: RECEIVED PATIENT IN BED THIS MORNING. PATIENT IS ALERT X3, RESPONDS APPROPRIATELY. ON O2 VIA NC 2 L/MIN SATING WELL. NO SIGNS OF RESPIRATORY DISTRESS NOTED. ON TELE MONITOR, SR 96. BLE EDEMA. PATIENT HAS A FOWLER, DRAINING WELL. PICC AT [facility], C/D/I, FLUSHING WELL, NO SIGNS OF COMPLICATIONS NOTED. SAFETY MEASURES IMPLEMENTED, BED IN LOWEST POSITION, LOCKED, SIDE RAILS UP X2, CALL LIGHT WITHIN REACH. WILL CONTINUE TO MONITOR PATIENT FOR ANY CHANGES.
[2019-09-29 08:00] VITALS: BP 113/63
[2019-09-29] MEDS: INSULIN REGULAR, HUMAN 100 UNIT/ML 3 ML VIAL SQ PRN ×3 (08:48→17:46)
[2019-09-29] MEDS: ENOXAPARIN SODIUM 40 MG/0.4 ML DISP.SYRIN SQ SCH (08:49)
[2019-09-29] MEDS: VITAMIN B COMP W-C 1 TAB TABLET PO SCH (08:50)
[2019-09-29] MEDS: DULOXETINE HCL 30 MG CAPSULE.DR PO SCH (08:51)
[2019-09-29] MEDS: METFORMIN 500 MG TABLET PO SCH ×2 (08:51→17:24)
[2019-09-29] MEDS: FOLIC ACID 1 MG TABLET PO SCH (08:51)
[2019-09-29] MEDS: GABAPENTIN 400 MG CAPSULE PO SCH ×3 (08:51→17:24)
[2019-09-29] MEDS: FUROSEMIDE 40 MG/4 ML VIAL IV SCH ×2 (08:51→17:00)
[2019-09-29] MEDS: LISINOPRIL (20MG) 20 MG TABLET PO SCH (08:52)
[2019-09-29] MEDS ORDERED: SPIRONOLACTONE 25 MG TABLET PO SCH (09:00)
[2019-09-29 10:28] LABS: HEMOGLOBIN 8.4 g/dL (11.5-14.8)
[2019-09-29] MEDS: CADEXOMER IODINE 40 GM TUBE TP SCH (11:07)
[2019-09-29 12:00] VITALS: BP 115/68
[2019-09-29] MEDS: SOD FERRIC GLUC 125 MG in IV NS 0.9% 100 ML IV SCH (14:24)
[2019-09-29 16:00] VITALS: BP 86/50
--- NOTE | 2019-09-29 17:25 | NUR ---
1700 STACY HELD PER D/T BP 86/50
--- NOTE | 2019-09-29 19:22 | NUR ---
RN CLOSING NOTE: PATIENT REMAINS IN BED, RESTING. NO ACUTE DISTRESS NOTED. NO SIGNS OF RESPIRATORY DISTRESS NOTED. SAFETY MEASURES IMPLEMENTED, BED IN LOWEST POSITION, LOCKED, SIDE RAILS UP X2, CALL LIGHT WITHIN REACH. ENDORSED TO FOLLOWING SHIFT FOR CONTINUITY OF CARE.
--- NOTE | 2019-09-29 19:50 | NUR ---
NURSE LICENSED PRACTICAL NOTES RECEIVED PATIENT AWAKE IN BED WITH NO DISTRESS NOTED. CALL LIGHT WITHIN REACH. NO C/O PAIN OR DISCOMFORT. PERIPHERAL LINE INTACT AND PATENT. PERIPHERAL LINE INTACT AND PATENT. ENCOURAGED USE OF CALL LIGHT FOR ASSISTANCE AND VERBALIZED GOOD UNDERSTANDING. ROOM FREE OF CLUTTER AND BELONGINGS KEPT NEAR BEDSIDE. BED IN LOW LOCK SETTING WITH BED ALARM ON AND FUNCTIONING PROPERLY. WILL CONTINUE TO MONITOR
[2019-09-29 20:00] VITALS: BP 102/50
[2019-09-29] MEDS: CEFTRIAXONE 1 G in IV D5W 50 ML IV SCH (20:10)
[2019-09-29] MEDS: *INSULIN REGULAR(HUMULIN R)HUM 100 UNIT/ML VIAL SQ PRN (21:54)
[2019-09-30] VITALS: BP 97/55
[2019-09-30 04:00] VITALS: BP 107/73
--- NOTE | 2019-09-30 06:35 | NUR ---
CODE INSPECTOR NOTES PATIENT ASLEEP IN BED WITH NO DISTRESS NOTED. CALL LIGHT WITHIN REACH. ALL DUE MEDS GIVEN ORDERED WITH NO ASE. PICC LINE INTACT AND PATENT. ROOM FREE OF CLUTTER AND BELONGINGS KEPT NEAR BEDSIDE. BED IN LOW LOCK SETTING WITH BED ALARM ON AND FUNCTIONING PROPERLY. WILL ENDORSE TO ONCOMING SHIFT.
[2019-09-30] MEDS: BLOOD SUGAR DIAGNOSTIC 1 EACH STRIP VI SCH ×4 (07:30→21:41)
[2019-09-30 08:00] VITALS: BP 101/57
[2019-09-30 08:16] LABS: BASOPHILS % (AUTO) 0.5 % (0.0-2.0); EOSINOPHILS % (AUTO) 2.6 % (0.0-6.0); HEMATOCRIT 28 % (33-45); HEMOGLOBIN 8.6 g/dL (11.5-14.8); LYMPHOCYTES # (AUTO) 1.8 /CMM (0.8-4.8); MEAN CORPUSCULAR HGB CONC 31 g/dl (31.0-36.0); MEAN CORPUSCULAR VOLUME 77 fL (82-100); MONOCYTES # (AUTO) 0.9 /CMM (0.1-1.30); NEUTROPHILS # (AUTO) 5.4 /CMM (1.8-8.9); NEUTROPHILS % (AUTO) 64.9 % (43.0-81.0); PLATELET COUNT (AUTO) 139 /CMM (150-450); WHITE BLOOD COUNT (AUTO) 8.4 K/uL (4.3-11.0)
[2019-09-30 08:42] LABS: CALCIUM, SERUM 7.5 mg/dL (8.5-10.1); MAGNESIUM 1.7 mg/dL (1.8-2.4); PHOSPHORUS 2.5 mg/dL (2.5-4.9); POTASSIUM 3.8 mmol/L (3.5-5.1)
[2019-09-30] MEDS: GABAPENTIN 400 MG CAPSULE PO SCH ×3 (09:04→16:48)
[2019-09-30] MEDS: METFORMIN 500 MG TABLET PO SCH ×2 (09:04→16:48)
[2019-09-30] MEDS: VITAMIN B COMP W-C 1 TAB TABLET PO SCH (09:04)
[2019-09-30] MEDS: DULOXETINE HCL 30 MG CAPSULE.DR PO SCH (09:04)
[2019-09-30] MEDS: FOLIC ACID 1 MG TABLET PO SCH (09:04)
[2019-09-30] MEDS: FUROSEMIDE 40 MG TABLET PO SCH ×2 (09:05→16:48)
[2019-09-30] MEDS: ENOXAPARIN SODIUM 40 MG/0.4 ML DISP.SYRIN SQ SCH (09:06)
[2019-09-30] MEDS: CADEXOMER IODINE 40 GM TUBE TP SCH (09:07)
[2019-09-30] MEDS: Magnesium 1GM/D5W 100ML PREMIX 100 ML IV SCH ×2 (09:33→11:19)
[2019-09-30 12:00] VITALS: BP 116/60
[2019-09-30] MEDS: *INSULIN REGULAR(HUMULIN R)HUM 100 UNIT/ML VIAL SQ PRN ×2 (12:15→21:43)
[2019-09-30] MEDS: SOD FERRIC GLUC 125 MG in IV NS 0.9% 100 ML IV SCH (14:33)
[2019-09-30 16:00] VITALS: BP 105/53
--- NOTE | 2019-09-30 19:40 | NUR ---
RN OPENING NOTES: Received pt resting in bed A&Ox3. On RA tolerating well. No respiratory distress noted, breathing even and unlabored. On tele monitor showing SR. Has rider catheter patent and draining urine. Has right UA PICC, line flushed and patent, dressing c/d/i. Pt denies any pain. Safety measures in place. Bed in lowest and locked position, side rails up x3, call light within reach. Will continue to monitor.
[2019-09-30 20:00] VITALS: BP 100/49
[2019-09-30] MEDS: CEFTRIAXONE 1 G in IV D5W 50 ML IV SCH (20:03)
[2019-10-01] VITALS: BP 94/44
[2019-10-01 04:00] VITALS: BP 109/53
[2019-10-01 06:29] LABS: BASOPHILS # (AUTO) 0.1 /CMM (0.0-0.2); BASOPHILS % (AUTO) 0.8 % (0.0-2.0); EOSINOPHILS % (AUTO) 3.3 % (0.0-6.0); HEMATOCRIT 26 % (33-45); HEMOGLOBIN 7.8 g/dL (11.5-14.8); LYMPHOCYTES # (AUTO) 1.8 /CMM (0.8-4.8); LYMPHOCYTES % (AUTO) 26.3 % (20.0-44.0); MEAN CORPUSCULAR HGB CONC 30 g/dl (31.0-36.0); MEAN CORPUSCULAR VOLUME 78 fL (82-100); MONOCYTES # (AUTO) 0.8 /CMM (0.1-1.30); MONOCYTES % (AUTO) 12.1 % (2.0-12.0); NEUTROPHILS % (AUTO) 57.5 % (43.0-81.0); PLATELET COUNT (AUTO) 124 /CMM (150-450); RED BLOOD CELL COUNT(AUTO) 3.32 MIL/uL (4.0-5.2)
--- NOTE | 2019-10-01 07:00 | NUR ---
RN CLOSING NOTES: Pt resting in bed A&Ox3. On 2L/min NC tolerating well. No acute changes noted during shift. On tele monitor showing SR. Maradiaga cathether patent and draining. Right UA PICC line patent and flushing. All medications administered as ordered. Safety measures in place. Will endorse to AM nurse for TAMMIE.
--- NOTE | 2019-10-01 07:00 | NUR ---
mine laborer Notes Received patient in bed from roller checker. VSS. Patient uses nasal canula PRN 2L. Removes it sometimes but tolerates room air. Patient on cardiac diet. Patient has PICC line YARITZA, flushing well and patient in all 3 ports. Plan of care explained to patient on shift hand off. Skin issues on feet BL, wound care done with iodine cream. Bed in lowest position, call light with reach. All measures taken to ensure client safety.
[2019-10-01 07:15] LABS: CALCIUM, SERUM 7.9 mg/dL (8.5-10.1); CREATININE 0.8 mg/dL (0.6-1.3); MAGNESIUM 1.4 mg/dL (1.8-2.4); POTASSIUM 3.3 mmol/L (3.5-5.1)
[2019-10-01] MEDS: BLOOD SUGAR DIAGNOSTIC 1 EACH STRIP VI SCH ×2 (07:30→12:00)
[2019-10-01 08:00] VITALS: BP 113/56
[2019-10-01] MEDS ORDERED: POTASSIUM CHLORIDE 20 MEQ TAB.PRT.SR PO ONE (08:30)
[2019-10-01] MEDS: INSULIN REGULAR, HUMAN 100 UNIT/ML 3 ML VIAL SQ PRN ×2 (08:46→15:05)
[2019-10-01] MEDS: VITAMIN B COMP W-C 1 TAB TABLET PO SCH (09:29)
[2019-10-01] MEDS: METFORMIN 500 MG TABLET PO SCH (09:29)
[2019-10-01] MEDS: FUROSEMIDE 40 MG TABLET PO SCH (09:30)
[2019-10-01] MEDS: DULOXETINE HCL 30 MG CAPSULE.DR PO SCH (09:30)
[2019-10-01] MEDS: Magnesium 1GM/D5W 100ML PREMIX 100 ML IV SCH ×2 (09:30→09:35)
[2019-10-01] MEDS: FOLIC ACID 1 MG TABLET PO SCH (09:30)
[2019-10-01] MEDS: ENOXAPARIN SODIUM 40 MG/0.4 ML DISP.SYRIN SQ SCH (09:31)
[2019-10-01] MEDS: CADEXOMER IODINE 40 GM TUBE TP SCH (09:32)
[2019-10-01] MEDS: GABAPENTIN 400 MG CAPSULE PO SCH ×2 (11:51→15:13)
[2019-10-01] MEDS ORDERED: *INS REG SQ (12:52)
[2019-10-01] MEDS ORDERED: Blood Sugar Diagnostic VI (12:52)
[2019-10-01] MEDS ORDERED: INSU100V28 SQ (12:52)
[2019-10-01] MEDS ORDERED: FURO40TA5 PO (12:52)
[2019-10-01] MEDS ORDERED: METF-440 PO (12:52)
[2019-10-01] MEDS ORDERED: DEXT50DI8 IV (12:52)
--- NOTE | 2019-10-01 16:15 | NUR ---
plant managerrail equipment operator Notes Patient alert and orientedx3, aware of discharge plan to SNF. Patient being sent to [facility]. Spoke to sister over the phone and explained that [place] would [place] [id number] [place] [address]. And to call [phone] to follow up with her counter caser at the new facility. Patient signed her discharge paperwork. Discharge teaching completed. PICC line left in for continuation of antibiotic therapy and labs. Belongings returned and sent with alumni relations officer. Report given to EMT and patient sent with ID bands clipped and removed. Patient was stable on discharge with no critical vital signs.
== END 2019-10-01 16:15 | DRG 194 ==
LOC: ER 10:57 → TELE1 14:21 → ICU 15:25 → TELE-TD 09-26 09:38 → TELE1 09-26 10:32 → MEDSG1 10-01 11:56
PROVIDERS: ADMIT Internal Medicine; ATTEND Nurse Practitioner Acute Care
PROC: 02HV33Z Insertion of Infusion Device into Superior Vena Cava, Percutaneous Approach (ICD-10-PCS; principal; 2019-09-25)
PROC: 30233N1 Transfusion of Nonautologous Red Blood Cells into Peripheral Vein, Percutaneous Approach (ICD-10-PCS; principal; 2019-09-25)
PROC: B548ZZA Ultrasonography of Superior Vena Cava, Guidance (ICD-10-PCS; principal; 2019-09-25)
DX: I11.0 Hypertensive heart disease with heart failure (principal); K72.00 Acute and subacute hepatic failure without coma; I21.A1 Myocardial infarction type 2; D68.4 Acquired coagulation factor deficiency; E11.40 Type 2 diabetes mellitus with diabetic neuropathy, unspecified; E11.51 Type 2 diabetes mellitus with diabetic peripheral angiopathy without gangrene; D68.9 Coagulation defect, unspecified; I50.33 Acute on chronic diastolic (congestive) heart failure; D50.9 Iron deficiency anemia, unspecified; F17.200 Nicotine dependence, unspecified, uncomplicated; E87.2 Acidosis; D64.9 Anemia, unspecified; I25.10 Atherosclerotic heart disease of native coronary artery without angina pectoris; E11.621 Type 2 diabetes mellitus with foot ulcer; M20.42 Other hammer toe(s) (acquired), left foot; M20.41 Other hammer toe(s) (acquired), right foot; Z91.14 Patient's other noncompliance with medication regimen; Z83.3 Family history of diabetes mellitus; Z79.82 Long term (current) use of aspirin; L97.519 Non-pressure chronic ulcer of other part of right foot with unspecified severity; L97.409 Non-pressure chronic ulcer of unspecified heel and midfoot with unspecified severity; Z79.84 Long term (current) use of oral hypoglycemic drugs; Z79.899 Other long term (current) drug therapy; K80.20 Calculus of gallbladder without cholecystitis without obstruction; E66.9 Obesity, unspecified; Z68.35 Body mass index [BMI] 35.0-35.9, adult; I50.9 Heart failure, unspecified; I34.0 Nonrheumatic mitral (valve) insufficiency; I67.2 Cerebral atherosclerosis; R18.8 Other ascites; S99.921A Unspecified injury of right foot, initial encounter; W20.8XXA Other cause of strike by thrown, projected or falling object, initial encounter; Y92.9 Unspecified place or not applicable; R26.9 Unspecified abnormalities of gait and mobility
CPT/HCPCS: 36415; 36569; 70450-TC; 71045-TC; 71260-TC; 73630-TC; 76705-TC; 80048-TC; 80053-TC; 80061-TC; 80074; 80076-TC; 81000-TC; 82140-TC; 82272-TC; 82550-TC; 82728-TC; 82947-TC; 82962-TC; 83540-TC; 83605-TC; 83615-TC; 83690-TC; 83735-TC; 83880; 84100-TC; 84155-TC; 84439-TC; 84443-TC; 84484-TC; 85025-TC; 85027-TC; 85730-TC; 86850-TC; 86921-TC; 87040-TC; 87070-TC; 87081-TC; 88112-TC; 88305-TC; 88312-TC; 93307-TC; 97110-TC; 97530-TC; C1751; G0378; J0696; J1650; J1815; J1940; J2270; J2916; J3475; J7030; J7040; J7050; J7060; P9016-BL; Q9967